=== PATIENT | female | born 1970 | race Hispanic/Latino ===

== ENCOUNTER 2018-12-26 13:17 | Emergency (ER) | payer BC ==
[2018-12-26] MEDS ORDERED: IBUPROFEN 600 MG TABLET ONE (13:26)
== END 2018-12-26 13:58 | disposition home or self-care (01) ==
LOC: EDH 13:17
DX: S93.402A Sprain of unspecified ligament of left ankle, initial encounter (principal); E11.9 Type 2 diabetes mellitus without complications; Z90.49 Acquired absence of other specified parts of digestive tract; Z79.84 Long term (current) use of oral hypoglycemic drugs; X58.XXXA Exposure to other specified factors, initial encounter; Y93.89 Activity, other specified; Y92.89 Other specified places as the place of occurrence of the external cause; Y99.8 Other external cause status
CPT/HCPCS: 73610